=== PATIENT | male | born 1995 | race Caucasian/White ===

== ENCOUNTER 2019-03-14 02:50 | Emergency (ER) | payer SELFPAY ==
[2019-03-14 02:50] VITALS: BP 123/66; PULSE 96; RESP 18; TEMP 36.9; O2SAT 99; BMI 21.7
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
[2019-03-14 04:36] VITALS: BP 115/61; PULSE 68; O2SAT 100
== END 2019-03-14 04:38 | disposition home or self-care (01) ==
LOC: ED 03:52
PROVIDERS: Emergency Provider Emergency Medicine
DX: S00.81XA Abrasion of other part of head, initial encounter (principal); S40.811A Abrasion of right upper arm, initial encounter; Y04.0XXA Assault by unarmed brawl or fight, initial encounter; Y93.9 Activity, unspecified; Y92.9 Unspecified place or not applicable; Y99.9 Unspecified external cause status; G40.909 Epilepsy, unspecified, not intractable, without status epilepticus; Z72.0 Tobacco use
CPT/HCPCS: 70450; 99285